=== PATIENT | female | born 1980 | race Caucasian/White ===

== ENCOUNTER 2018-09-19 11:05 | Emergency (ER) | payer OTHER ==
[~2018-09-19] VITALS: Ht 154.9 cm; Wt 65.0 kg
[~2018-09-19 11:05] MED LIST: AMOX1TAB61 PO; IBUP-1222 PO; OXYC-302 PO
--- NOTE | 2018-09-19 11:49 | NUR ---
PT PRESENTS TO ED WITH C/O LUQ PAIN THAT RAIDATES INTO EPIGASTRIC AREA. STARTED ON TUESDAY. STATES NO PATTERN TO WHEN PAIN GETS WORSE. STATES YESTERDAY VERY LARGE HARD BM WHICH HAD A TINGE OF BLOOD. TODAY BM IS SOFTER. NO PMH WITH ABD. MILD AMOUNT OF DISTRESS AND DISCOMFORT. PT ON CONT. PULSE OX AND BP. WILL CONTINUE TO MONITOR.
[2018-09-19] MEDS ORDERED: MAALOX/HYOSCYAMINE/LIDOCAINE 45 ML BTL ONE (12:20)
[2018-09-19] MEDS ORDERED: MAALOX/HYOSCYAMINE/LIDOCAINE 45 ML BTL PO ONE (12:30)
--- NOTE | 2018-09-19 12:31 | NUR ---
PT MEDICATED PER NOV. 5 RIGHTS VERIFEID PRIOR. PT UP TO RESTROOM TO COLLECT URINE SAMPLE.
[2018-09-19 12:35] LABS: BASOPHILS # (AUTO) 0.02 x10^3/uL (0-0.1); BASOPHILS % (AUTO) 0 % (0-1); EOSINOPHILS # (AUTO) 0.34 x10^3/uL (0-0.4); EOSINOPHILS % (AUTO) 4 % (1-7); LYMPHOCYTES # (AUTO) 1.96 x10^3/uL (1-3.4); LYMPHOCYTES % (AUTO) 24 % (22-44); MD NO; MEAN CORPUSCULAR HEMOGLOBIN 31.5 pg (27.0-34.8); MEAN CORPUSCULAR HGB CONC 34.9 g/dL (32.4-35.8); MEAN CORPUSCULAR VOLUME 90.5 fL (80-100); MEAN PLATELET VOLUME 6.7 fL (7.4-10.4); MONOCYTES # (AUTO) 0.44 x10^3/uL (0.2-0.8); MONOCYTES % (AUTO) 5 % (2-9); NEUTROPHILS # (AUTO) 5.42 x10^3/uL (1.8-6.8); NEUTROPHILS % (AUTO) 66 % (42-75); PLATELET COUNT 322 x10^3/uL (130-400); RED BLOOD COUNT 4.73 x10^6/uL (3.82-5.3); RED CELL DISTRIBUTION WIDTH 12.5 % (9.6-15.2)
[2018-09-19 12:44] LABS: ALBUMIN 3.6 g/dL (3.4-5.0); ANION GAP 7 mmol/L (5-15); CHLORIDE 110 mmol/L (98-107)
[2018-09-19 12:46] LABS: HCG UR SG 1.005 (1.003-1.030); MICROSCOPIC AUTO
[2018-09-19 12:47] LABS: ALANINE AMINOTRANSFERASE 25 U/L (12-78); ALKALINE PHOSPHATASE 67 U/L (45-117); BILIRUBIN,TOTAL 0.4 mg/dL (0.2-1.0); CREATININE 0.72 mg/dL (0.55-1.02); TOTAL PROTEIN 7.8 g/dL (6.4-8.2)
[2018-09-19 12:47] LABS: CULTURE INDICATED? YES
[2018-09-19 13:24] VITALS: BP 125/87
== END 2018-09-19 13:42 | disposition home or self-care (01) ==
LOC: ED 12:10
DX: N10 Acute pyelonephritis (principal); N39.0 Urinary tract infection, site not specified
CPT/HCPCS: 36415; 80053; 81001; 81025; 83690; 85025; 87077; 87086; 99283